=== PATIENT | male | born 1945 | race Caucasian/White ===

== ENCOUNTER 2025-01-13 05:45 | Day surgery (SDC) | payer OTHER, SELFPAY ==
[2024-12-30 10:06] VITALS: BMI 27.9
[2024-12-30 10:32] LABS: INR 1.72; PT 20.7 Sec (11.4-14.6)
[2024-12-30 10:35] LABS: Hematocrit 41.9 % (39.0-52.0); Hemoglobin 13.8 g/dL (13.0-18.0); Mean Corp Hgb Conc. 32.9 g/dL (33.0-37.0); Mean Corpuscular Volume 91.3 fL (80.0-94.0); Nucleated Red Blood Cells % 0 % (-); Platelet Count 155 10^3/uL (130-400); Red Cell Dist. Width 13.1 % (11.5-14.5)
[2024-12-30 11:04] LABS: ALT (SGPT) 29 U/L (0-50); AST (SGOT) 30 U/L (17-59); Albumin 4.2 g/dl (3.5-5.0); Alkaline Phosphatase 64 U/L (38-126); Blood Urea Nitrogen 15 mg/dl (9-20); Calcium 9.5 mg/dl (8.4-10.2); Carbon Dioxide 31 mmol/L (22-30); Chloride 108 mmol/L (98-107); Estimated Creatinine Clearance 80 ml/min; Glucose 71 mg/dl (70-99); Magnesium 2.1 mg/dl (1.6-2.3); Potassium 4.6 mmol/L (3.5-5.1); Sodium 142 mmol/L (135-145); Total Protein 6.6 g/dl (6.3-8.2); eGFR > 60.00
[2025-01-13] VITALS (16 sets, daily range): BP systolic 82–121; BP diastolic 55–72
--- NOTE | 2025-01-13 08:07 | ITS.CL.ABL ---
[facility] - Ablation
Ablation
Procedure Report:
ELECTROPHYSIOLOGIC STUDY AND POSSIBLE ABLATION
DATE: January 13, 2025
Primary Care Provider: Dr. Abdulaziz Jeffries
INDICATION:
Symptomatic Atrial Fibrillation.
Recurrent persistent atrial fibrillation and atrial flutter
HISTORY: See H and P.
Symptomatic AF, poorly controlled with attempted medical therapy
He underwent initial ablation for atrial fibrillation in 2004, this was for longstanding persistent atrial fibrillation.
Sotalol was stopped in Mar 2005. Monitoring was repeated. No PAF seen
AF recurred 01/2017. Due to recurrent symptomatic atrial tachyarrhythmias he underwent EP study and ablation 2017 targeting mitral isthmus dependent flutter.
Due to recurrent arrhythmias, he presents today for further electrophysiologic study/mapping and ablation
HAS-BLED: 1
Age
CHADSVASc: 3
HTN
Age
PRESENTING RHYTHM: Atrial tachycardia
HISTORY: See H and P.
Symptomatic AF, poorly controlled with attempted medical therapy.
ANTICOAGULATION: Rivaroxaban 20 mg daily
'TIME-OUT': called and confirmed.
SEDATION/ANESTHESIA: provided via the anesthesia department using general anesthesia.
PROCEDURE:
Ultrasound Guidance with real-time visualization of needle insertion and vessel patency performed by me for femoral venous Vascular Access.
Under real-time US guidance, the needle was advanced with negative pressure into the vein. The needle was seen entering the vessel lumen with a good return of dark red flow, the syringe was removed, non-pulsatile, dark red blood low was noted and
the wire was passed without difficulty, then the needle was removed. US confirmed the wire was in the vein, not going into an artery,
Images were taken and saved for the patient's permanent record. Imaging findings typical femoral venous anatomy. Direct visualization of needle puncture into the femoral vein was observed and recorded.
A decapolar CS catheter was placed within the CS for mapping and pacing.
The intracardiac ultrasound catheter was positioned in the RA for continuous intracardiac ultrasound imaging.
Heparin bolus and infusion to target ACT at 300 -350 seconds was administered.
Entrainment from the right atrial lateral wall finds post pacing interval equal to tachycardia cycle length. Activation sequence is suggestive of counterclockwise right atrial flutter.
The sphere 9 catheter was positioned via the Agilis sheath into the right atrium and electroanatomical activation mapping was performed. Additionally entrainment from the cavotricuspid isthmus finds post pacing interval equal to tachycardia cycle
length. Counterclockwise CTI dependent right atrial flutter is diagnosed.
The sphere 9 catheter was positioned at the CTI�tricuspid valve annulus at approximately 6:00 and a 30 degree IRAQI projection. Both A and V electrograms are recorded. RF energy was delivered at this location and serially with the catheter being
withdrawn towards the IVC. Approximately fdc across the CTI energy was switched from RF to PFA. At this location there is no ventricular electrogram recorded. Delivery of pulsed electric field energy at this location and then dragging back to
the IVC terminated the tachyarrhythmia. Energy was delivered to the IVC border.
Next, differential pacing and electroanatomical mapping finds bidirectional block at the ablation line.
Next, transseptal puncture was performed. This entailed advancing a sheath with dilator into the superior vena cava and withdrawing both (monitoring intracardiac ultrasound, fluoroscopy and tip pressure) with the tip oriented toward the atrial
septum. The fossa ovalis was engaged (indicated by sudden displacement of the sheath tip as well as tenting of the fossa seen on intracardiac ultrasound).
Transseptal puncture was performed. Left atrial catheter position was confirmed by echocardiographic imaging, pressure monitoring (LA mean pressure 6 mm Hg) and fluoroscopy. The sheath was advanced over the dilator and positioned in the left
atrium.
The Sphere 9 multipolar mapping/ablation Sphere-9 catheter was positioned through the transseptal sheath for high density mapping.
Geometry and voltage mapping was performed using the [employer] mapping system for three-dimensional electroanatomical mapping.
Catheter positioning was guided and confirmed using both I.C.E. and fluoroscopy.
High density electroanatomical three-dimensional mapping demonstrated 4 PVs: LSPV, LIPV, RSPV, RIPV.
Mapping demonstrates electrical connection at the inferior posterior quadrant of the left inferior pulmonary vein. PFA energy delivered to this area we isolated the pulmonary vein.
After accomplishing pulmonary venous isolation, mapping identified additional areas likely to be extra PV contributors to atrial fibrillation. These areas demonstrated patchy low voltage as well as complex fractionated electrograms. These areas can
be sites for the formation of rotors which can drive and maintain atrial fibrillation. These areas are known to be significant contributors to initiation and perpetuation of atrial fibrillation.
Additional energy applications/additional ablation sets targeted extra PV contributors to atrial fibrillation.
Targets for additional PFA ablation included:
LA posterior wall targeted with pulsed electric field energy isolating the posterior wall of the left atrium
After ablation of the posterior wall, additional targets were addressed:
LA inferior floor
These areas were ablated using pulsed electric field energy eliminating the extra PV contributors to atrial fibrillation.
Post ablation mapping finds entrance and exit block at each of the pulmonary veins the LA posterior wall and at the additional line at Inferior/floor of the LA rendering the sites no longer able to contribute to atrial fibrillation.
Programmed electrostimulation including burst atrial pacing as well the delivery of decremental extrastimuli down to atrial effective refractory period and no sustained arrhythmias could be induced.
I.C.E. :
Pre-Ablation Post-Ablation
LVEF: 55 % 55 %
WMA: none none
Pericardial effusion: none none
LA Pressure (mmHg) 6 8
COMPLICATIONS:
none
SUMMARY:
- Mapping and ablation to isolate the PVs resulting in electrical isolation of the pulmonary veins
- Additional AF ablation sets X 2 after PVI (LA posterior wall, Inf/floor of the LA posterior wall) resulting in elimination of the targeted extra PV contributors to atrial fibrillation (Post wall, Inf LA floor)
- Mapping and ablation of second tachycardia (right atrial CTI dependent counterclockwise flutter) rendering it non-inducible with programmed electrical stimulation
- 3-D Electroanatomical Mapping
- Intracardiac Ultrasound
- Ultrasound guidance for vascular access
RECOMMENDATIONS:
- Observe in monitored bed.
- Maintain oral anticoagulation.
- Will arrange office visit with Yuliana Stuart NP in 3 to 4 months.
Copy to: Dr. Abdulaziz Jeffries
[2025-01-13 08:50] LABS: ACT-LR - POC 263 Seconds (116-155)
--- NOTE | 2025-01-13 14:02 | W.PN.UPDATE ---
Update Note
Progress Note Update
79 yo WM s/p PVI (same day). He denies cp, sob, franny diet, voiding, EKG SR with occ PAC's, R fem site c/d/i. His bp was running low initially improved with IVF and OOB improved. He will resume Eliquis tonight and continue metoprolol. Activity
restrictions reviewed. He will f/u Dr. Anthony in 3 mo. He is for d/c home after 2p .
== END 2025-01-13 14:00 | disposition home or self-care (01) ==
LOC: CATH 05:45
PROVIDERS: ATTENDING PHYSICIAN Internal Medicine Cardiovascular Disease; FAMILY PHYSICIAN Family Medicine
DX: I48.11 Longstanding persistent atrial fibrillation (principal); I47.19 Other supraventricular tachycardia; E78.5 Hyperlipidemia, unspecified; G47.33 Obstructive sleep apnea (adult) (pediatric); I10 Essential (primary) hypertension; I48.92 Unspecified atrial flutter; M35.3 Polymyalgia rheumatica; M06.9 Rheumatoid arthritis, unspecified; I49.1 Atrial premature depolarization; Z87.891 Personal history of nicotine dependence; Z79.01 Long term (current) use of anticoagulants; Z79.899 Other long term (current) drug therapy; Z91.041 Radiographic dye allergy status; Z96.612 Presence of left artificial shoulder joint; Z96.643 Presence of artificial hip joint, bilateral
CPT/HCPCS: C1733; C1894; C1766; C1730; C1892; 36415; 80053; 83735; 85025; 85347; 85610; 86850; 86900; 86901; 93005; 93655; 93656; 93657